=== PATIENT | female | born 1960 | race Caucasian/White ===

== ENCOUNTER → 2021-05-18 | Outpatient (CLI) | payer OTHER | LOC: KOH-I 10:58 | DX: M79.672 Pain in left foot (principal); M19.072 Primary osteoarthritis, left ankle and foot | CPT/HCPCS: 73630 ==

== ENCOUNTER → 2021-05-22 | Outpatient (CLI) | payer OTHER | LOC: KOH-I 10:32 | DX: S86.312A Strain of muscle(s) and tendon(s) of peroneal muscle group at lower leg level, left leg, initial encounter (principal); M65.9 Synovitis and tenosynovitis, unspecified; R60.0 Localized edema; M72.2 Plantar fascial fibromatosis | CPT/HCPCS: 73721 ==

== ENCOUNTER → 2021-12-10 | Outpatient (CLI) | payer OTHER | LOC: KOH-I 09:28 | DX: M25.572 Pain in left ankle and joints of left foot (principal) | CPT/HCPCS: 73610; 73630 ==